=== PATIENT | female | born 1990 | race Caucasian/White ===

== ENCOUNTER 2016-12-31 14:07 | Emergency (ER) | payer BC ==
[2016-12-31] MEDS ORDERED: Adacel (T-DAP) 0.5 ML VIAL ONE (14:18)
[2016-12-31] MEDS ORDERED: Lorazepam 2 MG/ML VIAL ONE (14:22)
[2016-12-31] MEDS ORDERED: Lidocaine 1% w/Epinephrine 1:100K 20 ML VIAL ONE (14:25)
[2016-12-31] MEDS ORDERED: Bacitracin Zinc 1 Packet ONE (14:55)
== END 2016-12-31 15:10 | disposition home or self-care (01) ==
LOC: NAV ERS 14:07
DX: S81.812A Laceration without foreign body, left lower leg, initial encounter (principal); F41.9 Anxiety disorder, unspecified; W45.8XXA Other foreign body or object entering through skin, initial encounter; Y92.009 Unspecified place in unspecified non-institutional (private) residence as the place of occurrence of the external cause
CPT/HCPCS: 12004; 90471; 90715; J2001; J2060

== ENCOUNTER 2017-05-30 07:54 | Emergency (ER) | payer BC ==
[2017-05-30 08:21] LABS: Bilirubin Negative (Negative); Blood, Urine Large (Negative); Clarity Clear (Clear); Glucose, Urine (Dipstick) Negative (Negative); Leukocyte Negative (Negative); Nitrite Negative (Negative); Protein, Urine (Dipstick) Negative (Neg-Trace); Specific Gravity, Urine 1.015 (1.005-1.030); Urobilinogen 0.2 mg/dL (0.2-1.0)
[2017-05-30 08:23] LABS: Pregnancy Test - Urine (BHCG) Negative (Negative); Pregu Control Background? CLEAR/WHITE (CLR/WHITE); Pregu Control Bar Appear? YES (CONTROL BAR); Specific Gravity 1.015 (1.002-1.036)
[2017-05-30 08:30] LABS: Bacteria/HPF Rare-Few HPF (None Seen); WBC/HPF 0-3 HPF (0-3)
[2017-05-30 08:31] LABS: Other Microscopic Description NO
[2017-05-30] MEDS ORDERED: Ondansetron ODT 4 MG TAB ONE (08:40)
[2017-05-30] MEDS ORDERED: Ketorolac Tromethamine 60 MG/2 ML VIAL ONE (08:40)
[2017-05-30 09:10] LABS: #Basophils 0.1 thou/uL (0.0-0.2); #Lymphocytes 2.4 thou/uL (1.20-3.40); #Monocytes 0.8 thou/uL (0.11-0.59); #Neutrophils 8.4 thou/uL (1.40-6.50); %Basophils 0.9 % (0.0-1.0); %Eosinophils 0.1 % (0.0-10.0); %Lymphocytes 20.4 % (21.0-51.0); %Monocytes 6.5 % (0.0-10.0); %Neutrophils 72.1 % (42.0-75.0); Hemoglobin 15.8 g/dL (12.0-16.0); Mean Corpuscular Hemoglobin 28.2 pg (27.0-31.0); Mean Platelet Volume 6.3 fL (7.4-10.4); Platelet Count 302 thou/uL (130-400); RBC Distribution Width 11.5 % (11.5-14.5); Red Blood Cell (RBC) Count 5.59 mill/uL (4.20-5.40); White Blood Cell (WBC) Count 11.6 thou/uL (4.8-10.8)
[2017-05-30 09:15] LABS: ALT (SGPT) 38 U/L (8-55); AST (SGOT) 29 U/L (5-34); Albumin 4.7 g/dL (3.5-5.0); Alkaline Phosphatase 96 U/L (40-150); Anion Gap 18 mmol/L (10-20); BUN (Urea Nitrogen) 13 mg/dL (7.0-18.7); Bilirubin, Total 0.5 mg/dL (0.2-1.2); Calc. Creatinine Clearance 0 mL/min (70-130); Carbon Dioxide 20 mmol/L (22-29); Chloride 105 mmol/L (98-107); Estimated GFR-MDRD 88; Globulin 3.7 g/dL (2.4-3.5); Glucose 96 mg/dL (70-105); Potassium 3.9 mmol/L (3.5-5.1); Protein, Total 8.4 g/dL (6.0-8.3); Sodium 139 mmol/L (136-145)
--- NOTE | 2017-05-30 09:44 | CT ---
CT OF ABDOMEN AND PELVIS PERFORMED WITHOUT CONTRAST ENHANCEMENT: HISTORY: Right flank pain. FINDINGS: The lung bases are clear. There are diffuse pronounced fatty changes of the liver. The liver has a slightly elongated right lo be. It measures 19 cm in length. The spleen is within normal limits of size. Pancreas region is un remarkable. The gallbladder is normal in size. Slight increased attenuation to the gallbladder is d ifficult to assess due to the pronounced fatty change of the liver. Some of this may be just being c aused by the appearance next to a very abnormal liver, but there could be some sludge present within the gallbladder. The right and left adrenal glands are normal. There are punctate bilateral renal calculi. There is minimal dilatation of the right collecting system with minimal prominence to the right ureter which t apers to a more normal caliber at the mid ureter level. I do not see a definite ureteral calculus or a definite bladder calculus. There is no significant periaortic or mesenteric lymphadenopathy. CT OF PELVIS PERFORMED WITHOUT CONTRSAT ENHANCEMENT: There is no evidence of any significant adenopathy, mass, or free fluid. The appendix region appears unremarkable. IMPRESSION: 1. Punctate bilateral nonobstructing renal calculi. Some minimal dilatation to the right collecting system, although the right ureter is not significant dilated. I do not see a definite ureteral calc ulus, but given the minimal dilatation, it is possible that there has been a calculus that has passed . 2. Marked fatty changes of the liver which is borderline in size. POS: [facility]
== END 2017-05-30 09:40 | disposition home or self-care (01) ==
LOC: NAV ERS 07:54
DX: N20.0 Calculus of kidney (principal); F41.9 Anxiety disorder, unspecified
CPT/HCPCS: 74176; 80053; 81003; 81015; 81025; 85025; 96372; J1885; Q0162

== ENCOUNTER 2021-07-27 16:32 | Emergency (ER) | payer BC ==
[2021-07-27] MEDS ORDERED: Ondansetron PF 4 MG/2 ML Vial ONE (16:58)
[2021-07-27] MEDS ORDERED: Sodium Chloride 0.9% 1,000 ML ONE (16:58)
[2021-07-27] MEDS ORDERED: Ketorolac Tromethamine 30 MG/ML VIAL ONE ×2 (16:58→17:08)
[2021-07-27 17:05] LABS: Bilirubin Negative (Negative); Blood, Urine Large (Negative); Clarity SL HAZY (Clear); Glucose, Urine (Dipstick) Negative (Negative); Ketone, Urine Negative (Negative); Leukocyte Negative (Negative); Nitrite Negative (Negative); Protein, Urine (Dipstick) 30 mg/dL (Neg-Trace); Specific Gravity, Urine 1.025 (1.005-1.030); Urobilinogen 0.2 mg/dL (Less than 2)
[2021-07-27 17:07] LABS: Bacteria/HPF 2+ HPF (None Seen); RBC/HPF 21-50 HPF (0-3); Squamous Epithelial 0-3 HPF (0-3); WBC/HPF 0-3 HPF (0-3)
[2021-07-27 17:08] LABS: Pregnancy Test - Urine (BHCG) Negative (Negative); Pregu Control Background? CLEAR/WHITE (CLR/WHITE); Pregu Control Bar Appear? YES (CONTROL BAR); Specific Gravity 1.025 (1.002-1.036)
[2021-07-27 17:17] LABS: #Basophils 0.1 thou/uL (0.0-0.2); #Eosinphils 0.1 thou/uL (0.0-0.7); #Lymphocytes 3.3 thou/uL (1.20-3.40); #Monocytes 0.6 thou/uL (0.11-0.59); %Basophils 1.7 % (0.0-1.0); %Eosinophils 0.6 % (0.0-10.0); %Lymphocytes 40.7 % (21.0-51.0); %Monocytes 7.5 % (0.0-10.0); %Neutrophils 49.5 % (42.0-75.0); Hemoglobin 15.3 g/dL (12.0-16.0); Mean Corpuscular HGB CONC 32.9 g/dL (32.0-36.0); Mean Platelet Volume 6.4 fL (7.4-10.4); Platelet Count 293 thou/uL (130-400); RBC Distribution Width 11.2 % (11.5-14.5); Red Blood Cell (RBC) Count 5.26 mill/uL (4.20-5.40)
[2021-07-27 17:32] LABS: ALT (SGPT) 15 U/L (8-55); AST (SGOT) 16 U/L (5-34); Albumin 4.5 g/dL (3.5-5.0); Alkaline Phosphatase 82 U/L (40-110); Anion Gap 16 mmol/L (10-20); BUN (Urea Nitrogen) 12 mg/dL (7.0-18.7); Bilirubin, Total 0.3 mg/dL (0.2-1.2); Calc. Creatinine Clearance 0 mL/min (70-130); Calcium 9.4 mg/dL (7.8-10.44); Carbon Dioxide 20 mmol/L (22-29); Chloride 105 mmol/L (98-107); Globulin 3.6 g/dL (2.4-3.5); Glucose 113 mg/dL (70-105); Lipase 54 U/L (8-78); Potassium 3.7 mmol/L (3.5-5.1); Protein, Total 8.1 g/dL (6.0-8.3); Sodium 137 mmol/L (136-145)
[2021-07-27] MEDS ORDERED: Morphine 4 MG/ML VIAL ONE ×2 (17:44→18:15)
[2021-07-27] MEDS ORDERED: HYDROcodone/Acetaminophen 5/325 mg Tablet ONE (18:15)
[2021-07-27] MEDS ORDERED: Cephalexin 250 MG CAP ONE (18:20)
== END 2021-07-27 18:30 | disposition home or self-care (01) ==
LOC: NAV ERS 16:32
DX: N13.2 Hydronephrosis with renal and ureteral calculous obstruction (principal); I10 Essential (primary) hypertension; E78.00 Pure hypercholesterolemia, unspecified; Z79.84 Long term (current) use of oral hypoglycemic drugs; Z79.899 Other long term (current) drug therapy
CPT/HCPCS: 74176; 80053; 81003; 81015; 81025; 83690; 85025; 96374; 96375; 96376; J1885; J2270; J2405; J7050